=== PATIENT | female | born 1980 | race Caucasian/White ===

== ENCOUNTER 2024-01-22 07:21 | Emergency (ER) | payer BC ==
[~2024-01-22] VITALS: Ht 154.9 cm; Wt 77.1 kg
[2024-01-22] MEDS ORDERED: PRED50TA PO (08:41)
[2024-01-22] MEDS ORDERED: predniSONE 50 MG TABLET ONE (08:55)
[2024-01-22] MEDS: predniSONE 50 MG TABLET PO ONE (08:56)
[2024-01-22 08:57] VITALS: BP 109/66; O2SAT 100
== END 2024-01-22 08:58 | disposition home or self-care (01) ==
LOC: ER 07:23
DX: R60.0 Localized edema (principal); Z88.5 Allergy status to narcotic agent
CPT/HCPCS: 99283; J7512; A4606; A4663